=== PATIENT | female | born 1955 | race Caucasian/White ===

== ENCOUNTER 2021-07-16 17:42 | Emergency (ER) | payer MEDICARE, SELFPAY ==
[2021-07-16 18:09] VITALS: PULSE 78; RESP 16; TEMP 36.6; O2SAT 99
[2021-07-16 19:00] VITALS: BP 142/88
--- NOTE | 2021-07-16 19:40 | ED.SKABFB ---
HPI - Skin/Abscess/Foreign Bdy General Chief complaint: Skin/Abscess/Foreign Body Stated complaint: stomach and side rash Time Seen by Provider: 07/16/21 19:20 Source: patient, family, RN notes reviewed and old records reviewed Mode of arrival: ambulatory Limitations: no limitations History of Present Illness HPI narrative: 66 year old female presents to express care accompanied by spouse with stated development of reddish purplish rash along lower abdomen into sides to lateral back which patient states started today. Patient is chronically ill with liver disease and has some decreased renal function also. states that has stents in her liver and had hepatitis C in past which was treated but has cirrhosis of liver and is not on transplant list due to her COPD. Spouse states that they were in [place] and was treated for rash with prednisone for 5 days with last dose yesterday.He reported to nurse that patient was in hospital a week ago for liver issues,poor historians,Rash is reddish like purpura type of skin which does not leonila. Patient states that skin kind of peter. denies any trauma to area. Instructed patient and spouse that they need to be seen by her liver doctor and should go to ED for evaluation at [facility] where her liver specialist is located, they stated they don't want to go to ED, states can't you just give her an antibiotic. complaint: rash and other (purpura) Onset (ago): day(s) (1) Context: other (chronically ill) Treatments prior to arrival: none Related Data Home Medications Medication Instructions Recorded Confirmed febuxostat 40 mg PO DAILY 07/16/21 07/16/21 brstujnckok-lctakwqqf-wnpdtvgh 1 inh INHALATION DAILY 07/16/21 07/16/21 [Trelegy Ellipta] hydrocodone-acetaminophen 1 tablet PO Q6H PRN 07/16/21 07/16/21 lactulose 10 g PO DAILY 07/16/21 07/16/21 loratadine [Claritin] 10 mg PO DAILY 07/16/21 07/16/21 magnesium oxide 400 mg PO BID 07/16/21 07/16/21 pantoprazole 20 mg PO HS 07/16/21 07/16/21 rifaximin [Xifaxan] 550 mg PO BID 07/16/21 07/16/21 Allergies Allergy/AdvReac Type Severity Reaction Status Date / Time NSAIDS (Non-Steroidal AdvReac Other Verified 07/16/21 19:10 Anti-Inflamma Review of Systems Review of Systems: CONSTITUTIONAL: Denies fever, chills, or sweats. EYES: Denies visual changes, redness, or discharge. ENT: Denies rhinorrhea, congestion, sore throat, or otalgia. CARDIOVASCULAR: Denies chest pain, palpitations, or edema. RESPIRATORY: Denies cough or any acute dyspnea. GASTROINTESTINAL: Denies abdominal pain, nausea, vomiting, positive for loose stools, Patient takes daily Lactulose related to liver disease. GENITOURINARY: Denies dysuria or hematuria. SKIN: reddish purple rash along lower abdomen extending to sides of back does not leonila, denies any trauma to area MUSCULOSKELETAL: Denies any acute back pain or joint pain, or myalgia. NEUROLOGIC: Denies headache, numbness, or weakness. PSYCHIATRIC: Denies anxiety or depression. All systems reviewed & are unremarkable except as noted in HPI and below PMFSH Past Medical History Medical History (Updated 07/18/21 @ 09:15 by Francia Rausch NP) Asthma Cirrhosis of liver without ascites Report patient has liver stents COPD (chronic obstructive pulmonary disease) Decreased renal function Hepatitis C Surgical History Surgical History (Updated 07/18/21 @ 08:46 by Francia Rausch NP) History of bladder surgery History of cataract removal with insertion of prosthetic lens Hx of shoulder surgery Social History Social History (Updated 07/18/21 @ 08:48 by Francia Rausch NP) Smoking status: Unknown if ever smoked Alcohol intake: unknown Substance use: unknown Living arrangements: with family Additional occupation/education comments: disabled Gender identity (if verbalized by the patient): Female Comments At time of signature, agree with nursing past medical, surgical, soci
== END 2021-07-16 20:20 | disposition home or self-care (01) ==
PROVIDERS: Emergency Provider Registered Nurse; PCP Nurse Practitioner
DX: D69.2 Other nonthrombocytopenic purpura (principal); L95.9 Vasculitis limited to the skin, unspecified; K74.60 Unspecified cirrhosis of liver; J44.9 Chronic obstructive pulmonary disease, unspecified; Z86.19 Personal history of other infectious and parasitic diseases
CPT/HCPCS: 99202; G0463